=== PATIENT | female | born 1970 | race Caucasian/White ===

== ENCOUNTER 2019-04-11 17:49 | Observation (INO) ==
[2019-04-11 19:48] LABS: Bilirubin,Urine Small (Negative); Blood,Urine Negative (Negative); Clarity,Urine Cloudy (Clear); Color,Urine Dark Yellow (Yellow); Glucose,Urine (UA) Normal (Normal); Ketones,Urine Trace mg/dL (Negative); Leukocyte Esterase,Urine Small (Negative); Nitrite,Urine Negative (Negative); PH,Urine 5.5 pH Units (5.0-8.0); Protein,Urine Trace mg/dL (Neg-Trace); Specific Gravity,Urine 1.029 (1.010-1.025); Urobilinogen,Urine Normal (Normal)
[2019-04-11 19:52] LABS: Bacteria,Urine Many per hpf (None-Few); RBC,Urine 15-30 per hpf (0-3); Squamous Epithelial Cell,Urine Many per lpf (None-Few); WBC,Urine 15-30 per hpf (0-3)
[2019-04-11 20:16] LABS: Calcium Oxalate Crystals,Urine Present; Hyaline Casts,Urine None Seen per lpf (None-Few)
[2019-04-11] MEDS ORDERED: Ipratropium/Albuterol Neb 3 ML IH ONE (20:26)
[2019-04-11] MEDS ORDERED: Aspirin 81 MG TAB.CHEW PO STA (23:54)
[2019-04-12] MEDS ORDERED: Naloxone 0.4 MG/ML INJ IVP PRN (03:57)
[2019-04-12] MEDS ORDERED: 0.9 % Sodium Chloride 1,000 ML IVC SCH (04:00)
[2019-04-12] MEDS ORDERED: Albuterol 2.5 MG/3 ML NEBULIZER IH PRN (04:02)
[2019-04-12] MEDS ORDERED: *HR* HYDROcodone/Acet 5/325 mg TABLET PO PRN (04:02)
[2019-04-12 04:45] LABS: Hematocrit 38.5 % (35.3-44.9); Mean Corpuscular Hemoglobin 28.3 pg (28.0-33.3); Mean Corpuscular Volume 85.9 fL (83.0-100.0); Mean Platelet Volume 9.5 fL (9.4-12.4); Platelet Count 239 K/mcL (140-400); Red Blood Count 4.48 M/mcL (3.82-4.97); Red Cell Distribution Width 13.9 % (11.5-14.5); White Blood Count 7.6 K/mcL (4.3-11.1)
[2019-04-12 04:52] LABS: Hemoglobin 12.7 g/dL (11.5-15.4)
[2019-04-12 05:01] LABS: BUN/Creatinine Ratio 26 (6-26); Blood Urea Nitrogen 23 mg/dL (6-20); Calcium 8.7 mg/dL (8.6-10.3); Carbon Dioxide 25 mEq/L (23-29); Chloride 107 mEq/L (98-107); Glucose 104 mg/dL (70-105); Osmolality,Calculated 296 (280-300); Potassium 3.6 mEq/L (3.5-5.1); Sodium 141 mEq/L (136-145); eGFR For African Americans > 60 (> 60); eGFR For Non-African Americans > 60 (> 60)
[2019-04-12] MEDS ORDERED: Ipratropium/Albuterol Neb 3 ML IH PRN (06:10)
[2019-04-12] MEDS: Gabapentin 300 MG CAPSULE PO SCH ×3 (09:14→20:52)
[2019-04-12] MEDS: Furosemide 20 MG TABLET PO SCH (09:14)
[2019-04-12] MEDS ORDERED: Perflutren Lipid Microsphere 1.3 ML in 0.9 % Sodium Chloride 8.7 ML IVP ONE (11:25)
[2019-04-12] MEDS: *HR* Heparin 5,000 UNIT/ML VIAL SQ SCH ×2 (14:51→20:52)
[2019-04-12] MEDS ORDERED: Furosemide 40 MG/4 ML VIAL IVP ONE (16:00)
[2019-04-12] MEDS ORDERED: rOPINIRole 1 MG TABLET PO SCH (21:00)
[2019-04-12] MEDS ORDERED: Melatonin 3 MG TABLET PO SCH (21:00)
[2019-04-13] MEDS: *HR* Heparin 5,000 UNIT/ML VIAL SQ SCH (05:38)
[2019-04-13 10:06] VITALS: BP 127/73
[2019-04-13] MEDS: Gabapentin 300 MG CAPSULE PO SCH (10:06)
[2019-04-13] MEDS: Furosemide 20 MG TABLET PO SCH (10:06)
[2019-04-13 11:05] LABS: Adenovirus Not Detected (Not Detect); Bordetella Pertussis Not Detected (Not Detect); Coronavirus 229E Not Detected (Not Detect); Coronavirus HKU1 Not Detected (Not Detect); Coronavirus NL63 Not Detected (Not Detect); Coronavirus OC43 Not Detected (Not Detect); Human Metapneumovirus Not Detected (Not Detect); Human Rhinovirus/Enterovirus Not Detected (Not Detect); Influenza A Subtype 2009 H1 Not Detected (Not Detect); Influenza B Not Detected (Not Detect); Parainfluenza Virus 1 Not Detected (Not Detect); Parainfluenza Virus 2 Not Detected (Not Detect); Parainfluenza Virus 3 Not Detected (Not Detect); Parainfluenza Virus 4 Not Detected (Not Detect); Respiratory Syncytial Virus Not Detected (Not Detect)
[2019-04-13 11:06] LABS: Chlamydophila pneumoniae Not Detected (Not Detect); Mycoplasma pneumoniae Not Detected (Not Detect)
== END 2019-04-13 14:36 | disposition home or self-care (01) ==
LOC: EMEROOARM 17:49 → 2ANU 17:49 → SUATTDRO 04-12 00:19 → 2ANU 04-12 00:54
PROVIDERS: ADMIT Family Medicine; ATTEND Internal Medicine

== ENCOUNTER 2019-04-22 17:19 | Observation (INO) ==
[2019-04-22] MEDS ORDERED: Aspirin 81 MG TAB.CHEW PO ONE (17:45)
[2019-04-22 18:13] LABS: Basophils % 0.6 %; Eosinophils # 0.1 K/mcL (0.0-0.6); Eosinophils % 1.9 %; Hematocrit 42.2 % (35.3-44.9); Hemoglobin 13.9 g/dL (11.5-15.4); Immature Granulocytes % 0.6 % (0-4); Lymphocytes # 2.3 K/mcL (0.6-4.6); Lymphocytes % 33.7 %; Mean Corpuscular HGB Conc 32.9 g/dL (31.6-35.5); Mean Corpuscular Hemoglobin 28.9 pg (28.0-33.3); Mean Corpuscular Volume 87.7 fL (83.0-100.0); Mean Platelet Volume 9.5 fL (9.4-12.4); Monocytes # 0.6 K/mcL (0.0-1.3); Monocytes % 8.1 %; Neutrophils # 3.8 K/mcL (1.6-8.9); Platelet Count 243 K/mcL (140-400); Red Blood Count 4.81 M/mcL (3.82-4.97); Red Cell Distribution Width 13.9 % (11.5-14.5); Segmented Neutrophils % 55.1 %; White Blood Count 6.8 K/mcL (4.3-11.1)
[2019-04-22 18:29] LABS: BUN/Creatinine Ratio 18 (6-26); Blood Urea Nitrogen 16 mg/dL (6-20); Calcium 8.5 mg/dL (8.6-10.3); Carbon Dioxide 26 mEq/L (23-29); Chloride 107 mEq/L (98-107); Glucose 99 mg/dL (70-105); Osmolality,Calculated 289 (280-300); Sodium 139 mEq/L (136-145); Troponin I < 0.03 ng/mL (< 0.04); eGFR For African Americans > 60 (> 60); eGFR For Non-African Americans > 60 (> 60)
[2019-04-22] MEDS: Nitroglycerin 0.4 MG TAB.SUBL SL PRN ×2 (19:48→19:54)
[2019-04-22] MEDS ORDERED: Naloxone 0.4 MG/ML INJ IVP PRN (20:11)
[2019-04-22] MEDS ORDERED: Ondansetron 4 MG/2 ML VIAL IVP PRN (20:11)
[2019-04-22] MEDS ORDERED: Acetaminophen 325 MG TABLET PO PRN (20:11)
[2019-04-22] MEDS ORDERED: Dextrose Gel 15 GM/37.5 ML TUBE PO PRN ×2 (20:18)
[2019-04-22] MEDS ORDERED: D5% in Water 1,000 ML IVC PRN (20:18)
[2019-04-22] MEDS ORDERED: *HR* Dextrose 50 % in Water (Syg) 50 ML SYRINGE IVP PRN (20:18)
[2019-04-22] MEDS ORDERED: Diclofenac Sodium (DR) 75 MG TABLET.DR PO PRN (20:43)
[2019-04-22] MEDS ORDERED: Baclofen 10 MG TABLET PO PRN (20:43)
[2019-04-22] MEDS ORDERED: *HR* HYDROcodone/Acet 5/325 mg TABLET PO PRN (20:43)
[2019-04-22] MEDS ORDERED: NON-FORMULARY MEDICATION 1 EACH EACH (Fluticasone Propionate [Flovent Hfa] 1 PUFF) IH SCH (21:00)
[2019-04-22] MEDS ORDERED: rOPINIRole 1 MG TABLET PO SCH (21:00)
[2019-04-22] MEDS ORDERED: Insulin LISPRO 300 UNITS/3 ML VIAL SQ SCH (21:00)
[2019-04-22] MEDS ORDERED: Melatonin 3 MG TABLET PO SCH (21:00)
[2019-04-22 22:10] LABS: Estimated Average Glucose 105 mg/dl
[2019-04-22] MEDS: *HR* Heparin 5,000 UNIT/ML VIAL SQ SCH (22:30)
[2019-04-22] MEDS: Gabapentin 300 MG CAPSULE PO SCH (22:31)
[2019-04-22] MEDS: Famotidine 20 MG TABLET PO SCH (22:31)
[2019-04-22] MEDS: Ipratropium/Albuterol Neb 3 ML IH SCH (23:32)
[2019-04-23 02:33] LABS: Basophils # 0.1 K/mcL (0.0-0.2); Basophils % 0.9 %; Eosinophils # 0.2 K/mcL (0.0-0.6); Eosinophils % 2.7 %; Hematocrit 39.8 % (35.3-44.9); Hemoglobin 12.9 g/dL (11.5-15.4); Immature Granulocytes % 0.3 % (0-4); Lymphocytes # 2.7 K/mcL (0.6-4.6); Lymphocytes % 35.1 %; Mean Corpuscular HGB Conc 32.4 g/dL (31.6-35.5); Mean Corpuscular Hemoglobin 28.3 pg (28.0-33.3); Mean Corpuscular Volume 87.3 fL (83.0-100.0); Mean Platelet Volume 9.3 fL (9.4-12.4); Monocytes # 0.6 K/mcL (0.0-1.3); Monocytes % 8.2 %; Neutrophils # 4.1 K/mcL (1.6-8.9); Platelet Count 234 K/mcL (140-400); Red Blood Count 4.56 M/mcL (3.82-4.97); Segmented Neutrophils % 52.8 %; White Blood Count 7.7 K/mcL (4.3-11.1)
[2019-04-23 02:59] LABS: Alanine Aminotransferase 10 Units/L (7-52); Albumin 3.3 g/dL (3.5-5.7); Albumin/Globulin Ratio 1.2 (1.1-2.2); Alkaline Phosphatase 88 Units/L (34-104); Aspartate Amino Transferase 10 Units/L (13-39); BUN/Creatinine Ratio 17 (6-26); Bilirubin,Total 0.3 mg/dL (0.3-1.0); Blood Urea Nitrogen 18 mg/dL (6-20); Calcium 8.5 mg/dL (8.6-10.3); Carbon Dioxide 22 mEq/L (23-29); Chloride 110 mEq/L (98-107); Chol/HDL Ratio 5.2 (0-4.9); Cholesterol 155 mg/dL (< 200); Globulin 2.7 g/dL (2.4-3.5); Glucose 123 mg/dL (70-105); HDL Cholesterol 30 mg/dL (40-59); LDL Cholesterol,Calculated 88 mg/dL (0-99); Magnesium 1.8 mg/dL (1.6-2.6); Osmolality,Calculated 289 (280-300); Potassium 3.5 mEq/L (3.5-5.1); Sodium 138 mEq/L (136-145); Triglycerides 183 mg/dL (< 150); eGFR For African Americans > 60 (> 60); eGFR For Non-African Americans 55 (> 60)
[2019-04-23] MEDS: Ipratropium/Albuterol Neb 3 ML IH SCH ×3 (04:13→11:43)
[2019-04-23] MEDS: *HR* Heparin 5,000 UNIT/ML VIAL SQ SCH (05:31)
[2019-04-23] MEDS ORDERED: Insulin LISPRO 300 UNITS/3 ML VIAL SQ SCH (07:30)
[2019-04-23] MEDS: Famotidine 20 MG TABLET PO SCH (08:58)
[2019-04-23] MEDS: Gabapentin 300 MG CAPSULE PO SCH (08:58)
[2019-04-23] MEDS ORDERED: Furosemide 20 MG TABLET PO SCH (09:00)
[2019-04-23 10:47] VITALS: BP 116/61
[2019-04-24] MEDS ORDERED: Cholecalciferol (D-3) 1,000 UNIT (25MCG) TABLET PO SCH (20:43)
== END 2019-04-23 12:05 | disposition home or self-care (01) ==
LOC: EMEROOARM 17:19 → 2ANU 17:19 → SUATTDRO 19:52 → 2ANU 20:41
PROVIDERS: ADMIT Internal Medicine; ATTEND Family Medicine